=== PATIENT | female | born 1980 | race Caucasian/White ===

== ENCOUNTER 2016-06-25 09:10 | Emergency (ER) | payer BC ==
[2016-06-25 09:49] VITALS: BP 143/87
--- NOTE | 2016-06-25 10:02 | UC ---
Throat Pain/Nasal Khadar HPI - HPI Summary HPI Summary: Sore throat for over one week took a partial dose of PCN last week with relief then pain returned--unsure about fever "Been taking so much Ibuprofen I would not know" - History of Current Complaint Chief Complaint: UCGeneralIllness Stated Complaint: THROAT Time Seen by Provider: 06/25/16 10:02 Hx Obtained From: Patient Hx Last Menstrual Period: 06/22/16 ?: No Onset/Duration: Gradual Onset, Lasting Weeks, Worse Since - past fe days Severity: Moderate Pain Intensity: 6 Pain Scale Used: 0-10 Numeric Associated Signs & Symptoms: Positive: Negative - Allergies/Home Medications Allergies/Adverse Reactions: Allergies Allergy/AdvReac Type Severity Reaction Status Date / Time Erythromycin Allergy Unknown Unknown Verified 06/25/16 09:49 Reaction Details Environmental allergies Allergy Eyes Uncoded 06/25/16 09:49 Itchy/Swollen/Red/Watery Home Medications: Home Medications Levonorgestrel (IUD) (NF) [Mirena (NF)] 20 mcg IU ONCE 06/25/16 [History Confirmed 06/25/16] PMH/Surg Hx/FS Hx/Imm Hx Previously Healthy: No Endocrine History Of: Denies: Diabetes, Thyroid Disease Cardiovascular History Of: Denies: Cardiac Disorders, Hypertension Respiratory History Of: Reports: Asthma Denies: COPD GI/ History Of: Denies: Ulcer Psychological History Of: Reports: Anxiety, Depression - Surgical History Surgical History: Yes Surgery Procedure, Year, and Place: Abdominal Adhesions, 2016, [place]; , 2009, [place] - Family History Known Family History: Positive: None, Hypertension - Social History Occupation: Employed Full-time - special labor and delivery registered nurse Lives: With Family Alcohol Use: None Substance Use Type: None Smoking Status (MU): Never Smoked Tobacco - Immunization History Most Recent Influenza Vaccination: Not the 2015/2016 Season Review of Systems Constitutional: Negative Skin: Negative Eyes: Negative ENT: Sore Throat Respiratory: Negative Cardiovascular: Negative Gastrointestinal: Negative Genitourinary: Negative Motor: Negative Neurovascular: Negative Musculoskeletal: Negative Neurological: Negative Psychological: Negative All Other Systems Reviewed And Are Negative: Yes Physical Exam Triage Information Reviewed: Yes Appearance: Well-Appearing, No Pain Distress, Well-Nourished Vital Signs: Initial Vital Signs Temp 98.3 F 06/25/16 09:46 Pulse 88 06/25/16 09:46 Resp 16 06/25/16 09:46 BP 143/87 06/25/16 09:46 Pulse Ox 100 06/25/16 09:46 Vital Signs Reviewed: Yes Eye Exam: Normal Eyes: Positive: Conjunctiva Clear ENT Exam: Other ENT: Positive: Hearing grossly normal, Pharyngeal erythema, Nasal congestion, Nasal drainage, TMs normal, Tonsillar swelling. Negative: Tonsillar exudate, Trismus, Muffled/hoarse voice Dental Exam: Normal Neck exam: Normal Neck: Positive: Supple, Nontender, No Lymphadenopathy Respiratory Exam: Normal Respiratory: Positive: Chest non-tender, Lungs clear, Normal breath sounds, No respiratory distress, No accessory muscle use Cardiovascular Exam: Normal Cardiovascular: Positive: RRR, No Murmur, Pulses Normal, Brisk Capillary Refill Abdominal Exam: Normal Abdomen Description: Positive: Nontender, No Organomegaly, Soft Bowel Sounds: Positive: Present Musculoskeletal Exam: Normal Musculoskeletal: Positive: Strength Intact, ROM Intact, No Edema Neurological Exam: Normal Neurological: Positive: Alert, Muscle Tone Normal Psychological Exam: Normal Psychological: Positive: Normal Response To Family Skin Exam: Normal Diagnostics - Laboratory Diagnostic Studies Completed/Ordered: RST(+) Throat Pain/Nasal Course/Dx - Course Course Of Treatment: Augmentin, increase fluids, ibuprofen prn pain follow with pcp recheck prn - Differential Dx/Diagnosis Differential Diagnosis/HQI/PQRI: Influenza, Otitis Media, Pharyngitis, Sinusitis , URI Provider Diagnoses: Strep Pharyngitis Discharge - Discharge Plan Condition: Stable Disposition: HOME Prescriptions: Amoxicillin/Clavulanate TAB* [Augmentin TAB 875*] 875 mg PO BID #20 tab Patient Education Materials: Strep Throat (ED) Referrals: Shala Fink PA [Primary Care Provider] - If Needed
== END 2016-06-25 10:22 | disposition home or self-care (01) ==
LOC: UCCORT 09:10
DX: J02.0 Streptococcal pharyngitis (principal); Z88.1 Allergy status to other antibiotic agents
CPT/HCPCS: 87651; 99212; G0463

== ENCOUNTER 2017-03-29 09:34 | Emergency (ER) | payer BC ==
--- NOTE | 2017-03-29 09:57 | UC ---
Respiratory Complaint HPI - HPI Summary HPI Summary: Pt with cough, chest congestion, PND, and right ear pain for 5 days - History of Current Complaint Hx Obtained From: Patient Hx Last Menstrual Period: 06/22/16 Onset/Duration: Gradual Onset Severity Initially: Mild Severity Currently: Mild Pain Intensity: 0 Pain Scale Used: 0-10 Numeric Character: Cough: Nonproductive Aggravating Factors: Allergens, Deep Breaths Alleviating Factors: Nothing Associated Signs And Symptoms: Positive: Dyspnea, Nasal Congestion, Sinus Discomfort. Negative: Fever, Chills, Pleuritic Chest Pain, Wheezing, Hemoptysis <Miguel Marcus - Last Filed: 03/29/17 11:30> <Mary Oro - Last Filed: 03/29/17 12:07> - History of Current Complaint Chief Complaint: UCRespiratory Stated Complaint: CONGESTION COUGH Time Seen by Provider: 03/29/17 09:56 - Allergies/Home Medications Allergies/Adverse Reactions: Allergies Allergy/AdvReac Type Severity Reaction Status Date / Time Erythromycin Allergy Unknown Unknown Verified 03/29/17 09:55 Reaction Details Environmental allergies Allergy Eyes Uncoded 03/29/17 09:55 Itchy/Swollen/Red/Watery PMH/Surg Hx/FS Hx/Imm Hx Previously Healthy: Yes Respiratory History: Asthma Psychological History: Anxiety, Depression - Surgical History Surgical History: Yes Surgery Procedure, Year, and Place: Abdominal Adhesions, 2015, [place]; , 2009, [place] - Family History Known Family History: Positive: None, Hypertension - Social History Alcohol Use: None Substance Use Type: None Smoking Status (MU): Never Smoked Tobacco - Immunization History Most Recent Influenza Vaccination: Not the 2015/2016 Season <Miguel Marcus - Last Filed: 03/29/17 11:30> Review of Systems Constitutional: Negative Skin: Negative Eyes: Negative ENT: Sore Throat, Ear Ache, Sinus Congestion Respiratory: Cough Cardiovascular: Negative Gastrointestinal: Negative Neurological: Negative Psychological: Negative Is Patient Immunocompromised?: No All Other Systems Reviewed And Are Negative: Yes <Miguel Marcus - Last Filed: 03/29/17 11:30> Physical Exam Triage Information Reviewed: Yes Appearance: Well-Appearing, Well-Nourished Vital Signs Reviewed: Yes Eyes: Positive: Conjunctiva Clear ENT: Positive: Hearing grossly normal, Pharynx normal, Nasal congestion, Nasal drainage, TMs normal - Left ear, TM bulging - Right ear, TM red - Right ear. Negative: Pharyngeal erythema, Tonsillar swelling, Tonsillar exudate, Muffled/ hoarse voice Dental Exam: Normal Neck exam: Normal Neck: Positive: Supple, Nontender, No Lymphadenopathy Respiratory Exam: Normal Respiratory: Positive: Chest non-tender, Lungs clear, Normal breath sounds Cardiovascular Exam: Normal Cardiovascular: Positive: RRR, No Murmur Neurological Exam: Normal Neurological: Positive: Alert Psychological Exam: Normal Psychological: Positive: Age Appropriate Behavior Skin Exam: Normal <Miguel Marcus - Last Filed: 03/29/17 11:30> Vital Signs: Initial Vital Signs Temp 98.3 F 03/29/17 09:54 Pulse 88 03/29/17 09:54 Resp 16 03/29/17 09:54 BP 131/84 03/29/17 09:54 Pulse Ox 99 03/29/17 09:54 <Mary Oro - Last Filed: 03/29/17 12:07> Respiratory Course/Dx - Course Course Of Treatment: PT has been taking mucinex and using her inhaler since symptoms started. Cough is controlled and SOB is ok with inhaler. Right ear revealed bulging and mildly erythematous. Rx for amoxicillin - Differential Dx/Diagnosis Differential Diagnosis/HQI/PQRI: Asthma, Bronchitis, Sinusitis Provider Diagnoses: Otitis Media right ear. Bronchitis <Miguel Marcus - Last Filed: 03/29/17 11:30> Discharge <Miguel Marcus - Last Filed: 03/29/17 11:30> <Mary Oro - Last Filed: 03/29/17 12:07> - Discharge Plan Condition: Stable Disposition: HOME Prescriptions: Amoxicillin PO (*) [Amoxicillin 500 MG CAP*] 500 mg PO Q12H #14 cap Patient Education Materials: Acute Bronchitis (ED), Otitis Media (DC) Referrals: Shala Fink PA [Primary Care Provider] - If Needed Additional Instructions: Keep using albuterol inhaler as needed for SOB/wheeze. If you develop fever, chills, or increased symptoms please call our office or go to ED. Attestation Statement User Type: Provider - I was available for consult. This patient was seen by the [facility]. The patient was not presented to, seen by, or examined by me. -iLu <Mary Oro - Last Filed: 03/29/17 12:07>
[2017-03-29 09:59] VITALS: BP 131/84
== END 2017-03-29 10:13 | disposition home or self-care (01) ==
LOC: UCCORT 09:34
DX: J40 Bronchitis, not specified as acute or chronic (principal); H66.91 Otitis media, unspecified, right ear
CPT/HCPCS: 99212; G0463

== ENCOUNTER 2018-08-02 07:46 | Emergency (ER) | payer BC, OTHER ==
[2018-08-02 08:07] VITALS: BP 128/72
--- NOTE | 2018-08-02 08:15 | UC ---
Respiratory Complaint HPI - HPI Summary HPI Summary: cough x 2 weeks chest congestion, wheezing, chest tightness nasal congestion , pnd, no sore throat, no fever, no chills - History of Current Complaint Chief Complaint: UCRespiratory Stated Complaint: COUGH (HAS ASTHMA) Time Seen by Provider: 08/02/18 08:08 Hx Obtained From: Patient Hx Last Menstrual Period: iud ?: No Onset/Duration: Gradual Onset, Lasting Weeks - 2, Still Present Timing: Constant Severity Initially: Moderate Severity Currently: Moderate Pain Intensity: 0 Character: Cough: Nonproductive Aggravating Factors: Exertion, Deep Breaths Associated Signs And Symptoms: Positive: Dyspnea, Chills, Wheezing, URI, Nasal Congestion. Negative: Fever - Allergies/Home Medications Allergies/Adverse Reactions: Allergies Allergy/AdvReac Type Severity Reaction Status Date / Time erythromycin base Allergy Unknown Unknown Verified 08/02/18 08:04 Reaction Details Environmental allergies Allergy Eyes Uncoded 08/02/18 08:04 Itchy/Swollen/Red/Watery Home Medications: Home Medications BuPROPion XL* [Bupropion XL*] 300 mg PO DAILY 08/02/18 [History Confirmed ] Sertraline* [Zoloft*] 100 mg PO BEDTIME 08/02/18 [History Confirmed 08/02/18] PMH/Surg Hx/FS Hx/Imm Hx Respiratory History: Asthma Psychological History: Depression - Surgical History Surgical History: Yes Surgery Procedure, Year, and Place: Abdominal Adhesions, 2015, [place]; , 2009, [place] - Family History Known Family History: Positive: None, Hypertension - Social History Alcohol Use: None Substance Use Type: None Smoking Status (MU): Never Smoked Tobacco - Immunization History Most Recent Influenza Vaccination: Not the Season Review of Systems All Other Systems Reviewed And Are Negative: Yes Constitutional: Positive: Chills, Fatigue Skin: Positive: Negative Eyes: Positive: Negative ENT: Positive: Nasal Discharge Respiratory: Positive: Shortness Of Breath, Cough Is Patient Immunocompromised?: No Physical Exam Triage Information Reviewed: Yes Appearance: Well-Appearing, No Pain Distress, Well-Nourished Vital Signs: Initial Vital Signs Temp 98.6 F 08/02/18 08:03 Pulse 85 08/02/18 08:03 Resp 16 08/02/18 08:03 BP 128/72 08/02/18 08:03 Pulse Ox 100 08/02/18 08:03 Vital Signs Reviewed: Yes Eye Exam: Normal Eyes: Positive: Conjunctiva Clear ENT: Positive: Normal ENT inspection, Hearing grossly normal, Pharynx normal Neck: Positive: Supple, Nontender, No Lymphadenopathy Respiratory: Positive: Chest non-tender, Lungs clear, Normal breath sounds Cardiovascular: Positive: RRR, No Murmur, Pulses Normal Skin Exam: Normal UC Diagnostic Evaluation - Laboratory O2 Sat by Pulse Oximetry: 100 Respiratory Course/Dx - Differential Dx/Diagnosis Provider Diagnosis: Acute bronchitis Discharge - Sign-Out/Discharge Documenting (check all that apply): Patient Departure All imaging exams completed and their final reports reviewed: No Studies - Discharge Plan Condition: Stable Disposition: HOME Prescriptions: Benzonatate CAP* [Tessalon 100 MG CAP*] 100 mg PO TID PRN #21 cap PRN Reason: Cough predniSONE TAB* [Deltasone 20 MG TAB*] 40 mg PO DAILY #10 tab Patient Education Materials: Acute Bronchitis (ED) Referrals: Shala Fink PA [Primary Care Provider] - If Needed - Billing Disposition and Condition Condition: STABLE Disposition: Home
== END 2018-08-02 08:16 | disposition home or self-care (01) ==
LOC: UCCORT 07:46
DX: J20.9 Acute bronchitis, unspecified (principal); J45.909 Unspecified asthma, uncomplicated; F32.9 Major depressive disorder, single episode, unspecified; Z88.1 Allergy status to other antibiotic agents; Z91.09 Other allergy status, other than to drugs and biological substances; Z79.899 Other long term (current) drug therapy
CPT/HCPCS: 99212; G0463

== ENCOUNTER 2018-11-14 13:14 | Emergency (ER) | payer BC ==
[2018-11-14 13:37] VITALS: BP 132/81
--- NOTE | 2018-11-14 13:55 | UC ---
Respiratory Complaint HPI - HPI Summary HPI Summary: 38-year-old female comes in with a chief complaint of upper respiratory tract infection symptoms for more than 2 weeks. Initially started out with runny nose and upper airway congestion. Describes it moved into her chest and now she has chest congestion. She has a history of asthma and this made her wheezing worse and she is more short of breath. Albuterol does help with the symptoms not as much as it usually does when she is not sick. No recent fevers. She's been bringing up some sputum that can range from green to brown. No chest pain. - History of Current Complaint Chief Complaint: UCRespiratory Stated Complaint: CONGESTION,COUGH Time Seen by Provider: 11/14/18 13:37 Hx Last Menstrual Period: unknown - pt has IUD Pain Intensity: 0 - Allergies/Home Medications Allergies/Adverse Reactions: Allergies Allergy/AdvReac Type Severity Reaction Status Date / Time erythromycin base Allergy Unknown Unknown Verified 11/14/18 13:38 Reaction Details Environmental allergies Allergy Eyes Uncoded 11/14/18 13:38 Itchy/Swollen/Red/Watery PMH/Surg Hx/FS Hx/Imm Hx Previously Healthy: Yes Respiratory History: Asthma - Surgical History Surgical History: Yes Surgery Procedure, Year, and Place: Mass removal from RLQ, 2018. Abdominal Adhesions, 2016, [place]. , 2009, [place] - Family History Known Family History: Positive: None, Hypertension - Social History Alcohol Use: None Substance Use Type: None Smoking Status (MU): Never Smoked Tobacco - Immunization History Most Recent Influenza Vaccination: Not the 2015/2016 Season Review of Systems All Other Systems Reviewed And Are Negative: Yes Constitutional: Positive: Negative Skin: Positive: Negative Eyes: Positive: Negative ENT: Positive: Nasal Discharge, Sinus Congestion Respiratory: Positive: Shortness Of Breath, Cough, Other - SEE HPI Cardiovascular: Positive: Negative Gastrointestinal: Positive: Negative Motor: Positive: Negative Neurovascular: Positive: Negative Musculoskeletal: Positive: Negative Neurological: Positive: Negative Psychological: Positive: Negative Is Patient Immunocompromised?: No Physical Exam Triage Information Reviewed: Yes Appearance: No Pain Distress, Well-Nourished, Ill-Appearing - MILD Vital Signs: Initial Vital Signs Temp 98 F 11/14/18 13:31 Pulse 93 11/14/18 13:31 Resp 18 11/14/18 13:31 BP 132/81 11/14/18 13:31 Pulse Ox 99 11/14/18 13:31 Vital Signs Reviewed: Yes Eye Exam: Normal Eyes: Positive: Conjunctiva Clear ENT: Positive: Pharynx normal, TMs normal Neck: Positive: Supple Respiratory: Positive: Lungs clear, Normal breath sounds, No respiratory distress Cardiovascular: Positive: RRR Musculoskeletal Exam: Normal Musculoskeletal: Positive: Strength Intact, ROM Intact Neurological Exam: Normal Neurological: Positive: Alert, Muscle Tone Normal Psychological Exam: Normal Psychological: Positive: Age Appropriate Behavior Skin Exam: Normal Respiratory Course/Dx - Differential Dx/Diagnosis Provider Diagnosis: Bronchitis with bronchospasm, Asthma Discharge - Sign-Out/Discharge Documenting (check all that apply): Patient Departure All imaging exams completed and their final reports reviewed: No Studies - Discharge Plan Condition: Stable Disposition: HOME Prescriptions: Amoxicillin/Clavulanate TAB* [Augmentin TAB 875*] 875 mg PO BID #20 tab predniSONE TAB* [Deltasone 20 MG TAB*] 40 mg PO DAILY #10 tab Patient Education Materials: Asthma (ED), Acute Bronchitis (ED), Bronchospasm ( ED) Forms: *Work Release Referrals: Shala Fink PA [Primary Care Provider] - Additional Instructions: FOLLOW UP WITH YOUR DOCTOR IF NOT COMPLETELY IMPROVED. GET RECHECKED SOONER IF YOUR CONDITION WORSENS OR ANY QUESTIONS OR CONCERNS. - Billing Disposition and Condition Condition: STABLE Disposition: Home
== END 2018-11-14 13:59 | disposition home or self-care (01) ==
LOC: UCCORT 13:14
DX: J45.909 Unspecified asthma, uncomplicated (principal)
CPT/HCPCS: 99212; G0463

== ENCOUNTER 2019-03-28 10:55 | Emergency (ER) | payer BC ==
[2019-03-28 12:18] VITALS: BP 147/96
--- NOTE | 2019-03-28 12:40 | UC ---
Respiratory Complaint HPI - HPI Summary HPI Summary: cough x 2 days cough is dry , harsh, worse with deep breathing, better with rest + wheezing, chest tightness, no fever, no chills, mild nasal congestion no fever, no chills , no sob - History of Current Complaint Chief Complaint: UCRespiratory Stated Complaint: TIGHT COUGH HISTORY OF ASTHMA Time Seen by Provider: 03/28/19 12:30 Hx Obtained From: Patient Hx Last Menstrual Period: IUD ?: No Onset/Duration: Gradual Onset, Lasting Days - 2, Still Present Timing: Constant Severity Initially: Moderate Severity Currently: Moderate Pain Intensity: 0 Character: Cough: Nonproductive Aggravating Factors: Exertion, Deep Breaths Alleviating Factors: Bronchodilator Associated Signs And Symptoms: Positive: Wheezing, Nasal Congestion. Negative: Dyspnea, Fever, Chills, Pleuritic Chest Pain, Hemoptysis, Dizziness - Allergies/Home Medications Allergies/Adverse Reactions: Allergies Allergy/AdvReac Type Severity Reaction Status Date / Time erythromycin base Allergy Unknown Unknown Verified 03/28/19 12:12 Reaction Details Environmental allergies Allergy Eyes Uncoded 03/28/19 12:12 Itchy/Swollen/Red/Watery Home Medications: Home Medications Albuterol 2.5MG/3ML (0.083%)* [Ventolin 2.5 MG/3 ML NEB.SETH*] 1 inh BID PRN [History Confirmed 03/28/19] PMH/Surg Hx/FS Hx/Imm Hx Respiratory History: Asthma - Surgical History Surgical History: Yes Surgery Procedure, Year, and Place: Mass removal from Q, 2018. Abdominal Adhesions, 2016, [place]. , 2009, [place] - Family History Known Family History: Positive: None, Hypertension - Social History Alcohol Use: Rare Substance Use Type: None Smoking Status (MU): Never Smoked Tobacco - Immunization History Most Recent Influenza Vaccination: Not the 2016/2016 Season Review of Systems All Other Systems Reviewed And Are Negative: Yes Constitutional: Positive: Negative Skin: Positive: Negative Eyes: Positive: Negative ENT: Positive: Negative Respiratory: Positive: Cough Cardiovascular: Positive: Negative Gastrointestinal: Positive: Negative Is Patient Immunocompromised?: No Physical Exam Triage Information Reviewed: Yes Appearance: Well-Appearing, No Pain Distress, Well-Nourished Vital Signs: Initial Vital Signs Temp 97.8 F 03/28/19 12:14 Pulse 108 03/28/19 12:14 Resp 17 03/28/19 12:14 BP 147/96 03/28/19 12:14 Pulse Ox 100 03/28/19 12:14 Vital Signs Reviewed: Yes Eye Exam: Normal Eyes: Positive: Conjunctiva Clear ENT Exam: Normal ENT: Positive: Normal ENT inspection, Hearing grossly normal, Pharynx normal Neck exam: Normal Neck: Positive: Supple, Nontender, No Lymphadenopathy Respiratory: Positive: Chest non-tender, Lungs clear, Normal breath sounds Cardiovascular: Positive: RRR, No Murmur, Pulses Normal Skin Exam: Normal Respiratory Course/Dx - Differential Dx/Diagnosis Provider Diagnosis: Bronchitis Discharge ED - Sign-Out/Discharge Documenting (check all that apply): Patient Departure All imaging exams completed and their final reports reviewed: No Studies - Discharge Plan Condition: Stable Disposition: HOME Prescriptions: Benzonatate CAP* [Tessalon 100 MG CAP*] 100 mg PO TID #7 cap predniSONE [Prednisone 20 MG TAB] 20 mg PO BID #10 tablet Patient Education Materials: Acute Bronchitis (ED) Referrals: Shala Fink PA [Primary Care Provider] - If Needed - Billing Disposition and Condition Condition: STABLE Disposition: Home
== END 2019-03-28 12:44 | disposition home or self-care (01) ==
LOC: UCCORT 10:55
DX: J45.909 Unspecified asthma, uncomplicated (principal); Z88.1 Allergy status to other antibiotic agents; Z91.09 Other allergy status, other than to drugs and biological substances; Z79.899 Other long term (current) drug therapy
CPT/HCPCS: 99212; G0463

== ENCOUNTER 2019-03-30 11:24 | Emergency (ER) | payer BC ==
[2019-03-30 12:02] VITALS: BP 148/96
--- NOTE | 2019-03-30 12:32 | UC ---
Throat Pain/Nasal Khadar HPI - HPI Summary HPI Summary: 38-year-old woman coming in with chief complaint of upper or sooner tract infection symptoms and asthma exacerbation symptoms. Been going on for about 5 days. She's been on prednisone 20 mg by mouth twice a day for 2 days and only showing minimal breathing improvement. She has been using her nebulizer which helps for a while then she feels tight in the chest again. Overnight she developed a fever over 101. She feels like she is getting worse rather than better. She tried Tessalon Perles which did not help cough. - History of Current Complaint Chief Complaint: UCGeneralIllness Stated Complaint: FEVER,COUGH Time Seen by Provider: 03/30/19 12:17 Hx Last Menstrual Period: IUD Pain Intensity: 0 - Allergies/Home Medications Allergies/Adverse Reactions: Allergies Allergy/AdvReac Type Severity Reaction Status Date / Time erythromycin base Allergy Unknown Unknown Verified 03/28/19 12:12 Reaction Details Environmental allergies Allergy Eyes Uncoded 03/28/19 12:12 Itchy/Swollen/Red/Watery Home Medications: Home Medications Ibuprofen TAB* [Motrin TAB* 800 MG] 800 mg PO ONCE 03/30/19 [History Confirmed 03/30/19] PMH/Surg Hx/FS Hx/Imm Hx Previously Healthy: Yes Respiratory History: Asthma - Surgical History Surgical History: Yes Surgery Procedure, Year, and Place: Mass removal from RLQ, 2018. Abdominal Adhesions, 2016, [place]. , 2009, [place] - Family History Known Family History: Positive: None, Hypertension - Social History Alcohol Use: Rare Substance Use Type: None Smoking Status (MU): Never Smoked Tobacco - Immunization History Most Recent Influenza Vaccination: Not the 2015/2016 Season Review of Systems All Other Systems Reviewed And Are Negative: Yes Constitutional: Positive: Other - SEE HPI Skin: Positive: Negative Eyes: Positive: Negative ENT: Positive: Nasal Discharge, Sinus Congestion Respiratory: Positive: Cough, Other - SEE HPI Cardiovascular: Positive: Negative Gastrointestinal: Positive: Negative Motor: Positive: Negative Neurovascular: Positive: Negative Musculoskeletal: Positive: Negative Neurological: Positive: Negative Psychological: Positive: Negative Is Patient Immunocompromised?: No Physical Exam Triage Information Reviewed: Yes Appearance: No Pain Distress, Well-Nourished, Ill-Appearing - MILD Vital Signs: Initial Vital Signs Temp 98.7 F 03/30/19 11:57 Pulse 88 03/30/19 11:57 Resp 16 03/30/19 11:57 BP 148/96 03/30/19 11:57 Pulse Ox 99 03/30/19 11:57 Vital Signs Reviewed: Yes Eye Exam: Normal Eyes: Positive: Conjunctiva Clear ENT: Positive: Pharyngeal erythema, Nasal congestion, Nasal drainage, TMs normal Respiratory: Positive: No respiratory distress, Rhonchi Cardiovascular: Positive: RRR Musculoskeletal: Positive: Strength Intact, ROM Intact Neurological: Positive: Alert, Muscle Tone Normal Psychological: Positive: Age Appropriate Behavior Skin Exam: Normal Throat Pain/Nasal Course/Dx - Course Course Of Treatment: DISCUSSED VIRAL VERSES BACTERIAL INFECTIONS AND THE ROLE OF ANTIBIOTICS. THE PATIENT PREFERS TO BE ON ANTIBIOTICS AT THIS TIME. - Differential Dx/Diagnosis Provider Diagnosis: Bronchitis, Asthma Discharge ED - Sign-Out/Discharge Documenting (check all that apply): Patient Departure All imaging exams completed and their final reports reviewed: No Studies - Discharge Plan Condition: Stable Disposition: HOME Prescriptions: Amoxicillin/Clavulanate TAB* [Augmentin TAB 875*] 875 mg PO BID #20 tab GuaiFENesin DM* [Robitussin DM*] 10 ml PO Q4H PRN #180 ml PRN Reason: Cough methylPREDNISolone [Medrol Dosepak 4 MG*] 0 mg PO .SEE ESEQUIEL INSTRUCTION #1 esequiel Patient Education Materials: Asthma (ED), Acute Bronchitis (ED) Forms: *Work Release Referrals: Shala Fink PA [Primary Care Provider] - Additional Instructions: FOLLOW UP WITH YOUR DOCTOR IF NOT COMPLETELY IMPROVED. GET REEVALUATED SOONER IF NOT IMPROVING OR YOUR CONDITION WORSENS OR ANY QUESTIONS OR CONCERNS. - Billing Disposition and Condition Condition: STABLE Disposition: Home
== END 2019-03-30 12:39 | disposition home or self-care (01) ==
LOC: UCCORT 11:24
DX: J45.909 Unspecified asthma, uncomplicated (principal); Z88.1 Allergy status to other antibiotic agents; Z91.09 Other allergy status, other than to drugs and biological substances
CPT/HCPCS: 99212; G0463

== ENCOUNTER 2019-05-28 08:51 | Emergency (ER) | payer BC ==
[2019-05-28 09:03] VITALS: BP 138/90
--- NOTE | 2019-05-28 09:28 | UC ---
Shortness of Breath HPI - HPI Summary HPI Summary: Patient is 38 year old female , with past medical history for asthma on Symbicort and albuterol who present today to the urgent care with asthma exacerbation last night.She reports that she was feeling fine then last night woke and felt she was tight in her lungs. Pt states she did 2 nebulizer treatments and still does not feel improvement. 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 No chest pain. Denies any abdominal pain , nausea or vomiting , diarrhea or constipation. - History of Current Complaint Chief Complaint: UCGeneralIllness Stated Complaint: HX:ASTHMA,HARD TO TAKE DEEP BREATH Time Seen by Provider: 05/28/19 09:27 Hx Obtained From: Patient Hx Last Menstrual Period: IUD - Allergy/Home Medications Allergies/Adverse Reactions: Allergies Allergy/AdvReac Type Severity Reaction Status Date / Time erythromycin base Allergy Unknown Unknown Verified 05/28/19 09:01 Reaction Details Environmental allergies Allergy Eyes Uncoded 05/28/19 09:01 Itchy/Swollen/Red/Watery PMH/Surg Hx/FS Hx/Imm Hx - Additional Past Medical History Additional PMH: Past Medical History : Asthma, anxiety/depression Past Surgical History: Mass removal from right lower quadrant-2018, in 2009, abdominal adhesions in 2016 Family History : non contributory Social History : Rare alcohol, non smoker, no drug use. She works in school Previously Healthy: Yes - Surgical History Surgical History: Yes Surgery Procedure, Year, and Place: Mass removal from RLQ, 2018. Abdominal Adhesions, 2015, [place]. , 2009, [place] - Family History Known Family History: Positive: None, Hypertension, Non-Contributory - Social History Alcohol Use: Rare Substance Use Type: None Smoking Status (MU): Never Smoked Tobacco - Immunization History Most Recent Influenza Vaccination: Not the 2016/2017 Season Review of Systems All Other Systems Reviewed And Are Negative: Yes Constitutional: Positive: Negative Skin: Positive: Negative Eyes: Positive: Negative ENT: Positive: Negative. Negative: Sore Throat, Ear Ache Respiratory: Positive: Shortness Of Breath. Negative: Cough Cardiovascular: Positive: Negative Gastrointestinal: Positive: Negative Genitourinary: Positive: Negative Motor: Positive: Negative Neurovascular: Positive: Negative Musculoskeletal: Positive: Negative Neurological: Positive: Negative Psychological: Positive: Negative Is Patient Immunocompromised?: No Physical Exam - Summary Physical Exam Summary: Physical Exam: Const: Appears well. No signs of apparent distress present. Alert and oriented x 3. Musculo: Walks with a normal gait. Head/Face: Atraumatic, normocephalic on inspection. Eyes: EOMI and PERRLA in both eyes. Conjunctivae clear. No discharge noted ENT: Hearing normal, TM normal appearing bilaterally, non bulging , non erythematous . No tenderness to palpation on maxillary and frontal sinus. No pharyngeal erythema or exudates . Uvula is midline. No cervical or submandibular lymphadenopathy noted. Respiratory: Respirations are unlabored. Poor expiration and decreased air movement upon expiration. No wheezing heard. No rhonchi or rales CVS: Regular rate and Rhythm, S1S2 normal , no murmurs identified. Extremities: Peripheral circulation is grossly normal. Pulses 2+ Abdomen : Soft non tender , nondistended , Bowel sounds present . No guarding , rebound tenderness or rigidity noted. Skin: No lesions or rash located on the upper extremities or on the lower extremities. Neuro: Cranial nerves II to XII intact, motor and sensory intact. DTR Intact bilaterally. Mood is normal. Affect is normal. Triage Information Reviewed: Yes Vital Signs: Initial Vital Signs Temp 98.7 F 05/28/19 08:57 Pulse 87 05/28/19 08:57 Resp 16 05/28/19 08:57 BP 138/90 05/28/19 08:57 Pulse Ox 99 05/28/19 08:57 Vital Signs Reviewed: Yes Shortness of Breath Dx - Course Course Of Treatment: Suspect asthma exacerbation. She was given 1 nebulizer treatment of DuoNeb and Solu-Medrol 125 mg IM. Reevaluation after neb treatment: She is feeling much better. Upon auscultation and her air movement upon expiration is much improved. We discussed that it does not appear that she has any infection that caused this exacerbation so plan to hold off any prophylactic antibiotics. I will prescribe a short course of steroid to the pharmacy She expressed understanding - Differential Dx/Diagnosis Provider Diagnosis: Asthma exacerbation Discharge ED - Sign-Out/Discharge Documenting (check all that apply): Patient Departure All imaging exams completed and their final reports reviewed: No Studies - Discharge Plan Condition: Stable Disposition: HOME Prescriptions: predniSONE [Prednisone 20 MG TAB] 20 mg PO DAILY 5 Days #15 tablet Patient Education Materials: Bronchospasm (ED) Referrals: Shala Fink PA [Primary Care Provider] - 3 Days Additional Instructions: Please start taking the medication as prescribed to the pharmacy . Continue your albuterol inhaler/nebulizer every 4 hours as needed and continue your Symbicort. Follow up with your primary care doctor in 2 - 3 days. Patients blood pressure slightly high in Urgent care today , plan follow up with PCP for better control Return to Urgent care / ER if symptoms get worse. - Billing Disposition and Condition Condition: STABLE Disposition: Home
[2019-05-28] MEDS ORDERED: Albuterol/Ipratropium NEB.SOL* Albuterol 2.5 MG/Ipratropium 0.5 MG 3 ML INH ONE (10:14)
[2019-05-28] MEDS ORDERED: methylPREDNISolone 125 MG* 2 ML VIAL IM ONE (10:14)
== END 2019-05-28 11:06 | disposition home or self-care (01) ==
LOC: UCCORT 08:51
DX: J45.901 Unspecified asthma with (acute) exacerbation (principal); Z88.1 Allergy status to other antibiotic agents; Z91.09 Other allergy status, other than to drugs and biological substances
CPT/HCPCS: 96372; 99212; A9270-GY; G0463; J2930

== ENCOUNTER 2019-08-28 19:01 | Emergency (ER) | payer BC ==
--- NOTE | 2019-08-28 19:31 | UC ---
Throat Pain/Nasal Khadar HPI - HPI Summary HPI Summary: 39-year-old female who has had a sore throat for the past 3 days. She denies any fever or chills. She states when she swallows she can feel some right- sided ear pain but that is not constant. She is very low risk for being exposed to Covid and has not been around anyone this been tested for Covid. - History of Current Complaint Chief Complaint: UCGeneralIllness Stated Complaint: ST Time Seen by Provider: 08/28/19 19:28 Hx Obtained From: Patient Hx Last Menstrual Period: has IUD ?: No Onset/Duration: Gradual Onset Severity: Mild Pain Intensity: 5 Cough: None Associated Signs & Symptoms: Positive: Negative - Allergies/Home Medications Allergies/Adverse Reactions: Allergies Allergy/AdvReac Type Severity Reaction Status Date / Time erythromycin base Allergy Unknown Unknown Verified 08/28/19 19:14 Reaction Details Environmental allergies Allergy Eyes Uncoded 08/28/19 19:14 Itchy/Swollen/Red/Watery Home Medications: Home Medications Albuterol HFA INHALER* [Ventolin HFA Inhaler*] 1 - 2 puff INH QID PRN 08/02/12 [ History Confirmed 08/28/19] Budesonide/Formoterol Fumarate [Symbicort 160-4.5 Mcg Inhaler] 2 aer IN BEDTIME 02/23/13 [History Confirmed 08/28/19] Levonorgestrel (IUD) (NF) [Mirena (NF)] 20 mcg IU ONCE 06/25/16 [History Confirmed 08/28/19] BuPROPion XL* [Bupropion XL*] 300 mg PO BEDTIME 08/02/18 [History Confirmed ] Sertraline* [Zoloft*] 100 mg PO BEDTIME 08/02/18 [History Confirmed 08/28/19] Albuterol 2.5MG/3ML (0.083%)* [Ventolin 2.5 MG/3 ML NEB.SETH*] 1 inh PO BID PRN 03/28/19 [History Confirmed 08/28/19] PMH/Surg Hx/FS Hx/Imm Hx Previously Healthy: Yes Psychological History: Depression - Surgical History Surgical History: Yes Surgery Procedure, Year, and Place: Mass removal from RLQ, 2018. Abdominal Adhesions, 2016, [place]. , 2009, [place] - Family History Known Family History: Positive: None, Hypertension, Non-Contributory - Social History Alcohol Use: Rare Substance Use Type: None Smoking Status (MU): Never Smoked Tobacco - Immunization History Most Recent Influenza Vaccination: Not the 2015/2016 Season Review of Systems All Other Systems Reviewed And Are Negative: Yes ENT: Positive: Sore Throat, Ear Ache - Mild right-sided earache when she swallows. Is Patient Immunocompromised?: No Physical Exam - Summary Physical Exam Summary: The patient was able to send me a picture of her throat which appeared normal. This was done because patient did not want to travel to this facility because of recent community travel restrictions regarding Covid as well as the road conditions because of inclement weather. Triage Information Reviewed: Yes Appearance: Well-Appearing, No Pain Distress, Well-Nourished Eyes: Positive: Conjunctiva Clear ENT: Positive: Pharynx normal, Uvula midline Psychological Exam: Normal Throat Pain/Nasal Course/Dx - Course Course Of Treatment: I spoke with the patient over the telephone and I believe at this point in time this is more than likely a viral sore throat. I don't feel she has an ear infection because she states she only feels some radiation of pain from her throat to her ear when she swallows. She's not had any fever. She was advised to follow-up with her primary care provider or come here and be rechecked over the next few days if she has any worsening symptoms. Patient is agreeable to this plan of action. She did not want discharge instructions sent to her home she was agreeable with the verbal instructions I gave her over the phone, which were warm saltwater gargles, throat lozenges and Tylenol or Advil as directed for pain. - Differential Dx/Diagnosis Provider Diagnosis: Pharyngitis, Otalgia, right ear Discharge ED - Sign-Out/Discharge Documenting (check all that apply): Patient Departure All imaging exams completed and their final reports reviewed: No Studies - Discharge Plan Condition: Good Disposition: HOME Referrals: Shala Fink PA [Primary Care Provider] - Additional Instructions: Increase fluids, warm saltwater gargles, throat lozenges and follow-up with primary care provider or here if any worsening symptoms or if continued symptoms. Patient is agreeable to this plan of action. - Billing Disposition and Condition Condition: GOOD Disposition: Home
== END 2019-08-28 19:49 | disposition home or self-care (01) ==
LOC: UCCORT 19:01
DX: J02.9 Acute pharyngitis, unspecified (principal); H92.01 Otalgia, right ear; Z88.1 Allergy status to other antibiotic agents; F32.9 Major depressive disorder, single episode, unspecified; Z79.899 Other long term (current) drug therapy
CPT/HCPCS: 99211; G0463